=== PATIENT | female | born 1995 | race African-American/Black ===

== ENCOUNTER 2020-06-14 12:07 | Emergency (ER) | payer OTHER ==
[~2020-06-14] VITALS: Ht 162.6 cm; Wt 97.1 kg
[2020-06-14 12:08] VITALS: BP 123/78
--- OUTSIDE RECORDS SUMMARY | 2020-06-14 13:03 | CCD ---
Author Author [facility] [place] [facility] Address Unknown Phone Unavailable Support Name Relationship Address Phone UE Next Of Kin Unknown Unavailable Re-disclosure Warning The records that you are about to access may contain information from federally-assisted alcohol or drug abuse programs. If such information is present, then the following federally mandated warning applies: This information has been disclosed to you from records protected by federal confidentiality rules (42 CFR part 2). The federal rules prohibit you from making any further disclosure of this information unless further disclosure is expressly permitted by the written consent of the person to whom it pertains or as otherwise permitted by 42 CFR part 2. A general authorization for the release of medical or other information is NOT sufficient for this purpose. The Federal rules restrict any use of the information to criminally investigate or prosecute any alcohol or drug abuse patient.The records that you are about to access may contain highly sensitive health information, the redisclosure of which is protected by Article 27-F of the [facility] Public Health law. If you continue you may have access to information: Regarding HIV / AIDS; Provided by facilities licensed or operated by the [facility] Office of Mental Health; or Provided by the [facility] Office for People With Developmental Disabilities. If such information is present, then the following [facility] mandated warning applies: This information has been disclosed to you from confidential records which are protected by state law. State law prohibits you from making any further disclosure of this information without the specific written consent of the person to whom it pertains, or as otherwise permitted by law. Any unauthorized further disclosure in violation of state law may result in a fine or care home sentence or both. A general authorization for the release of medical or other information is NOT sufficient authorization for further disc losure. Insurance Providers Payer name Policy type / Coverage type Policy ID Covered green party ID Covered green party's relationship to lyon Policy [place] Plan Information [facility] [id number] [facility] [id number]
== END 2020-06-14 13:15 | disposition home or self-care (01) ==
LOC: M ED 12:07
DX: N92.1 Excessive and frequent menstruation with irregular cycle (principal); N94.6 Dysmenorrhea, unspecified; Z88.0 Allergy status to penicillin

== ENCOUNTER 2020-08-13 19:11 | Emergency (ER) | payer OTHER, SELFPAY ==
[~2020-08-13] VITALS: Ht 162.6 cm; Wt 94.9 kg
[2020-08-13] MEDS ORDERED: ACETAMINOPHEN 500 MG TAB PO ONE (19:40)
[2020-08-13] MEDS ORDERED: NS 1,000 ML IV ONE (20:00)
[2020-08-13 20:20] LABS: BASO % 0.4 % (0.0-1.0); EOS % 0.2 % (0.0-3.0); HEMATOCRIT 39.3 % (36.0-47.0); HEMOGLOBIN 13.1 g/dl (12.0-15.5); LYMPH # 2.5 10^3/uL (1.5-5.0); LYMPH % 24.9 % (24.0-44.0); MEAN CORPUSCULAR HEMOGLOBIN 24.7 pg (27.0-33.0); MEAN CORPUSCULAR HGB CONC 33.3 g/dl (32.0-36.5); MONO # 0.8 10^3/uL (0.0-0.8); MONO % 8.1 % (2.0-8.0); NEUTROPHILS # 6.7 10^3/uL (1.5-8.5); NEUTROPHILS % 66.2 % (36.0-66.0); PLATELET COUNT, AUTOMATED 411 10^3/uL (150-450); RED BLOOD COUNT 5.31 10^6/uL (4.00-5.40); WHITE BLOOD COUNT 10.1 10^3/uL (4.0-10.0)
[2020-08-13 20:46] LABS: ALBUMIN 4.3 GM/DL (3.2-5.2); ALT/SGPT 16 U/L (12-78); BILIRUBIN,DIRECT < 0.1 MG/DL (0.0-0.2); BILIRUBIN,TOTAL 0.3 MG/DL (0.2-1.0); HCG, SERUM QUANTITATIVE < 1.0 MIU/ML; LIPASE 60 U/L (73-393); TOTAL PROTEIN 8.4 GM/DL (6.4-8.2)
[2020-08-13] MEDS ORDERED: KETOROLAC 30 MG/ML 1ML VIAL IV ONE (21:05)
[2020-08-13 23:36] LABS: APPEARANCE, URINE CLOUDY (CLEAR); BACTERIA, URINE AUTO NEGATIVE (NEGATIVE); BILIRUBIN, URINE AUTO NEGATIVE (NEGATIVE); BLOOD, URINE BLOOD NEGATIVE (NEGATIVE); COLOR, URINE AMBER (YELLOW); GLUCOSE, URINE (UA) AUTO NEGATIVE (NEGATIVE); KETONE, URINE AUTO 1+ mg/dL (NEGATIVE); LEUKOCYTE ESTERASE, URINE AUTO TRACE (NEGATIVE); MUCUS, URINE LARGE (NEGATIVE); NITRITE, URINE AUTO NEGATIVE (NEGATIVE); PROTEIN, URINE AUTO 2+ mg/dL (NEGATIVE); RBC, URINE AUTO 1 /HPF (0-3); SPECIFIC GRAVITY URINE AUTO 1.031 (1.002-1.035); SQUAMOUS EPITHELIAL CELL UR AU 24 /HPF (0-6); WBC, URINE AUTO 4 /HPF (0-3)
[2020-08-13] MEDS ORDERED: IBUP-1022 PO (23:48)
[2020-08-13 23:59] VITALS: BP 125/83
== END 2020-08-14 00:05 | disposition home or self-care (01) ==
LOC: M ED 19:11
DX: N93.9 Abnormal uterine and vaginal bleeding, unspecified (principal); R10.30 Lower abdominal pain, unspecified; Z88.0 Allergy status to penicillin
CPT/HCPCS: 80047; 80076; 81001; 83690; 84702; 85025; 86901; 87086; 96361; 96374; 99284; J1885

== ENCOUNTER 2020-08-28 17:16 | Emergency (ER) | payer OTHER ==
[~2020-08-28] VITALS: Ht 162.6 cm; Wt 99.4 kg
[~2020-08-28 17:16] MED LIST: IBUP-1022 PO
[2020-08-28 18:49] VITALS: BP 142/81
== END 2020-08-28 18:59 | disposition home or self-care (01) ==
LOC: M ED 17:16
DX: N92.6 Irregular menstruation, unspecified (principal); R10.2 Pelvic and perineal pain; R30.0 Dysuria; R11.0 Nausea; F41.9 Anxiety disorder, unspecified; F33.9 Major depressive disorder, recurrent, unspecified; Z88.0 Allergy status to penicillin

== ENCOUNTER → 2021-02-14 | Outpatient (REF) | payer OTHER | LOC: M WUC 20:28 | PROVIDERS: ATTEND Physician Assistant | DX: J06.9 Acute upper respiratory infection, unspecified (principal) ==

== ENCOUNTER 2021-03-13 23:00 | Inpatient (IN) | payer OTHER ==
[~2021-03-13] VITALS: Ht 160 cm; Wt 88.0 kg
[2021-03-14 00:52] LABS: HEMATOCRIT 39.2 % (36.0-47.0); HEMOGLOBIN 12.8 g/dl (12.0-15.5); MEAN CORPUSCULAR HGB CONC 32.7 g/dl (32.0-36.5); MEAN CORPUSCULAR VOLUME 67.5 fl (80.0-96.0); PLATELET COUNT, AUTOMATED 406 10^3/uL (150-450); RED BLOOD COUNT 5.81 10^6/uL (4.00-5.40); WHITE BLOOD COUNT 7.7 10^3/uL (4.0-10.0)
[2021-03-14 00:55] LABS: HCG, SERUM QUALITATIVE NEGATIVE (NEGATIVE)
[2021-03-14 01:08] LABS: AMPHETAMINES LEVEL URINE NEGATIVE (NEGATIVE); BARBITURATES URINE NEGATIVE (NEGATIVE); BENZODIAZEPINES URINE NEGATIVE (NEGATIVE); CANNABINOIDS URINE NEGATIVE (NEGATIVE); COCAINE METABOLITE URINE NEGATIVE (NEGATIVE); METHADONE URINE NEGATIVE (NEGATIVE); OPIATES URINE NEGATIVE (NEGATIVE); PHENCYCLIDINE URINE NEGATIVE (NEGATIVE)
[2021-03-14 01:37] LABS: ACETAMINOPHEN LEVEL < 2.0 UG/ML (10.0-30.0); ALBUMIN 4.2 GM/DL (3.2-5.2); ALT/SGPT 16 U/L (12-78); BILIRUBIN,DIRECT < 0.1 MG/DL (0.0-0.2); BILIRUBIN,TOTAL 0.4 MG/DL (0.2-1.0); BLOOD UREA NITROGEN 8 MG/DL (7-18); CALCIUM LEVEL 9.3 MG/DL (8.5-10.1); CARBON DIOXIDE LEVEL 20 MEQ/L (21-32); CHLORIDE LEVEL 106 MEQ/L (98-107); CREATININE FOR GFR 0.93 MG/DL (0.55-1.30); ETHYL ALCOHOL (ETHANOL) < 0.003 % (0.000-0.010); GLOMERULAR FILTRATION RATE > 60.0 (>60); GLUCOSE, FASTING 130 MG/DL (70-100); POTASSIUM SERUM 3.8 MEQ/L (3.5-5.1); SALICYLATE LEVEL < 1.7 MG/DL (5.0-30.0); SODIUM LEVEL 139 MEQ/L (136-145); TOTAL PROTEIN 8.6 GM/DL (6.4-8.2)
[2021-03-14] MEDS ORDERED: OLANZapine ORAL DISINTEGRATING TAB 5MG PO ONE (08:55)
--- NOTE | 2021-03-14 21:41 | ECGEPIP ---
[facility] - ED Test Date: 2021-03-14 Pat Name: ANDREA COPPOLA Department: Room: - Gender: Female Airplane Fueler: MATIAS : 1995 Requested By: AMANDA Dye Order Number: [id number] Reading MD: Waqar Segura Measurements Intervals [place] Rate: 109 P: NV: 96 QRS: 60 QRSD: 90 T: 57 QT: 484 QTc: 651 Interpretive Statements Sinus tachycardia with short NV T wave abnormality, consider inferior ischemia Prolonged QTc interval Comparison tracing not on file Electronically Signed on 03-14-2021 21:40:48 EDT by Waqar Segura
[2021-03-15] MEDS ORDERED: OLANZapine ORAL DISINTEGRATING TAB 5MG PO PRN (09:40)
[2021-03-15] MEDS ORDERED: MAALOX 30 ML SUSP *UDC PO PRN (09:40)
[2021-03-15] MEDS ORDERED: traZODone 50 MG TAB PO PRN (09:40)
[2021-03-15] MEDS ORDERED: MOM 30ML SUSPENSION UDC PO PRN (09:40)
[2021-03-15] MEDS ORDERED: ACETAMINOPHEN TAB 650MG DOSE (2X325MG) PO PRN (09:40)
[2021-03-15 09:47] LABS: RSV AMPLIFICATION NEGATIVE (NEGATIVE)
[2021-03-15] MEDS ORDERED: ZOLO100T PO (09:52)
[2021-03-15] MEDS ORDERED: HOME MED LIST COMPLETE! XX SCH (09:55)
[2021-03-15 16:19] VITALS: BP 133/90
[2021-03-15] MEDS: SERTRALINE 100 MG TAB PO SCH (21:23)
[2021-03-16 07:41] VITALS: BP 114/64
--- NOTE | 2021-03-16 10:05 | MHHPEPDOC ---
General Date Of Admission: Mar 15, 2021 Legal Status: 9.39 Chief Complaint "thought somebody coming to kill me" History of Present Illness HISTORY OF THE PRESENT ILLNESS: Patient is a 25 -year-old , female, dependent who has a reported hx of bipolar disorder, depression. [place] thought someone was flash a cell phone light outside apartment and may be a murder for hire. "I don't have any cameras set up yet and you never know". Denies AH, VH, but reports having auditory hallucinations of someone calling her name in the shower when in [place], reports he voice was unrecognizable and asked her questions, stated "we are watching you, when in went into a full scenario". States she didn't grow up in a dangerous neighborhood, was never around drug dealers, but states her friend Esperanza told her she knew drug dealers a couple months ago and this started to make her afraid. Does not appear manic, reports mood is "fairly okay because I can get cameras", reports sleeping well, energy is okay, "still a little fatigued". Had received a dose of Olanzapine in the ED, which has mildly helped with anxiety and paranoia. Per collateral from [place]: "I was in the field when she came in so didn't know what was happening. She has not heard voices lately, take olanzapine and doctor was thinking of starting on abilify, because olanzapine cause female problems and weight gain. She has no history of suicide attempts. Told me before diagnosed with depression was hearing voices talking to her back in [place], but not since." Psychiatric Review of Systems Depression (2 or more weeks): decreased energy Mehreen (4 or more days of): denies (denies ever having manic episodes, does report hx of depression) Psychosis: delusions, paranoia Past Psychiatric History Previous Psychiatric Diagnosis: Bipolar disorder Previous Psychiatric Admissions: Last admitted in [place] in 2018, I was depressed for a month, starting having AH/VH Suicide Attempts: denies Psychiatric Follow-up: Dr Jamaal Chacon, connected with [facility] Psychiatric medications: sertraline 100 mg, started 2 weeks ago, was planned to start abilify. Has tried olanzapine in the past made her sleep all day Past Medical History Medical Problems PCOS, irregular menses Head Injury: No Seizures: No Hospitalizations: No Surgeries: No Family Medical/Psychiatric HX Medical Problems denies Psychiatric Disorders: Yes (mother MDD) Addiction: No Suicide Attemps/Completions: No Addiction History denies Social History Childhood: Grew up in [facility] [place], has 3 kids, [place] Abuse/Trauma:denies Current Living [place]. 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 Marital: . Mental Status Examination General Appearance: unkempt Build: overweight Demeanor: preoccupied Eye Contact: average Activity: average Behavior: cooperative Speech: clear Mood: euthymic Affect: constricted Thought Process: logical/linear Thought Content (Delusions): paranoia Thought Content (Other): phobic, coherent Thought Content (Aggressive): none reported Perception (Hallucinations): none reported Perception (Other): none reported Cognition (Impairment of): attention/concentration Cognition(Intelligence Est.): average Oriented: Awake, Alert, Oriented times three Insight: fair Judgment: Fair Psychosis: Psychotic Perceptions Diagnoses Bipolar disorder with psychotic features vs Schizoaffective disorder vs Major depressive disorder with psychotic features A-FIB/CHADSVASC A-FIB History Current/History of A-Fib/PAF?: No Current PO Anticoag Therapy: No Age/Risk Factor Scoring CHADSVASC: CHADSVASC Response (Comments) Value Age Risk Factor Age < 65 years old 0 Gender Risk Factor Female 1 Hx of CHF No 0 Hx of HTN No 0 Hx of Stroke/TIA/or VTE No 0 Hx of Diabetes No 0 Hx of Vascular Disease No 0 Total 1 Treatment Treatment ordered: NONE Reason Anticoagulant not given: Not indicated/[id number], Other Other reason anticoagulant not: defer to hospitalist team Assessment Patient is a 25 -year-old , female, dependent who has a reported hx of bipolar disorder, depression. [place], thought someone was flash a cell phone light outside apartment and may be a murder for hire. "I don't have any cameras set up yet and you never know". Denies AH, , but reports having auditory hallucinations of someone calling her name in the shower when in [place], reports he voice was unrecognizable and asked her questions, stated "we are watching you, when in went into a full scenario". States she didn't grow up in a dangerous neighborhood, was never around drug dealers, but states her friend Esperanza told her she knew drug dealers a couple months ago and this started to make her afraid. Does not appear manic, reports mood is "fairly okay because I can get cameras", reports sleeping well, energy is okay, "still a little fatigued". Had received a dose of Olanzapine in the ED, which has mildly helped with anxiety and paranoia. Initial Treatment Plan 1. Patient was admitted on a [9.39] status. 2. Complete history was obtained. 3. With patients permission, family will be contacted and database will be expanded. 4. Patients medication regimen will be reviewed and changed accordingly. 5. Patient will be provided with protected environment. 6. Patient will be treated with individual, group, and milieu therapies. 7. Patient will receive supportive psych-education. 8. Discharge planning will commence immediately. 9. Outpatient follow-up treatment will be strongly recommended. 10. The initial treatment plan will focus initially on: * Depression. * Risk for suicide. ESTIMATED LENGTH OF STAY: 1-5 DAYS. TIME SPENT COUNSELING AND COORDINATING INITIAL CARE: 40 minutes. Tobacco Cessation Screen If Patient is a Smoker no Ordered/Pending Vital Signs Vital Signs Date Time Temp Pulse Resp B/P (MAP) Pulse Ox O2 Delivery O2 Flow Rate FiO2 03/16/21 07:41 97.7 72 18 114/64 (81) 99 Room Air Medications Scheduled Sertraline Hcl (Zoloft) 100 Mg Tablet, 100 MG PO QHS, (Reported) Allergies Coded Allergies: Penicillins (Verified Allergy, Severe, 06/14/20) DAVE DUNCAN MD Mar 16, 2021 10:05
--- NOTE | 2021-03-16 15:29 | HPEPDOC ---
[facility] Medical History & Physical Date of Admission Mar 16, 2021 Date of Service: Mar 16, 2021 Other Provider Ravi Mccormick MD psychiatry Attending Physician: YANI TOVAR DO History and Physical CHIEF COMPLAINT: I thought someone was trying to kill me HISTORY OF PRESENT ILLNESS: Patient is a 25-year-old female with a history of reported bipolar disorder and depression who presented to the emergency department with auditory hallucinations stating that someone was trying to murder her. Patient states that she did not have any camera set up and she never knows if someone is trying to get her. Patient states she thought she saw people looking at the window and presented to the emergency department. Patient does not have any medical complaints at this time and is feeling otherwise well. PAST MEDICAL HISTORY: 1. PCOS. 2. History of bipolar. PAST SURGICAL HISTORY: Denies any surgeries SOCIAL HISTORY: Patient denies smoking cigarettes, drinking alcohol, or illicit drug use. Patient is a dependent FAMILY HISTORY: Patient denies any medical problems that run in her family. Patient's mother does have depression ALLERGIES: Please see below. REVIEW OF SYSTEMS: General: Patient denies fevers HEENT: Patient denies headaches Cardiovascular: Patient denies chest pain Respiratory: Patient denies shortness of breath, cough GI: Patient denies abdominal pain, nausea, vomiting, diarrhea : Patient denies increased frequency or pain with urination Extremities: Patient denies swelling or pain in extremities Neurological: Patient denies numbness or tingling in legs Skin: Patient denies any new rashes or lesions. Hematologic: Patient denies any easy bruising. Lymphatic: Patient denies any lumps lumps or bumps in neck, axilla, or groin HOME MEDICATIONS: Please see below. PHYSICAL EXAMINATION: VITAL SIGNS: Temperature 97.7, pulse 72, respiratory rate 18, blood pressure 114/64, pulse oximetry 99% on room air. General: Alert and oriented female patient who was walking around the unit when I walked down. Patient was able to walk into the examination room without any difficulty. Patient did not appear to be in any acute distress. HEENT: Normocephalic, atraumatic, moist mucous membranes. Neck: No lymphadenopathy or thyromegaly Cardiac: Regular rate and rhythm, no murmurs, normal S1, normal S2 Pulm: Clear to auscultation bilaterally. No wheezes, rhonchi, rales Abd: Nondistended, nontender to palpation, normal bowel sounds Ext: No edema bilateral lower extremities Neuro: Patient was able to move all 4 extremities on command and reported equal sensation light touch in all 4 extremities. Skin: Skin of the head, neck, upper and lower extremities was examined did not show any evidence of rash or wounds. LABORATORY DATA: See below. IMAGING: No imaging has been performed MICROBIOLOGY: Please see below. ASSESSMENT: 25-year-old female who presented to the inpatient mental health unit for hearing voices and thinking someone was trying to kill her.. . PLAN: 1. Bipolar disorder. Continue treatment per psychiatry. Disposition: Patient can be discharged per psychiatry. Reconsult hospitalist if the need arises. Thank you for the consult Vital Signs Vital Signs Date Time Temp Pulse Resp B/P (MAP) Pulse Ox O2 Delivery O2 Flow Rate FiO2 03/16/21 10:15 Room Air 03/16/21 07:41 97.7 72 18 114/64 (81) 99 Home Medications Scheduled Sertraline Hcl (Zoloft) 100 Mg Tablet, 100 MG PO QHS Allergies Coded Allergies: Penicillins (Verified Allergy, Severe, 06/14/20) A-FIB/CHADSVASC A-FIB History Current/History of A-Fib/PAF?: No Age/Risk Factor Scoring CHADSVASC: CHADSVASC Response (Comments) Value Age Risk Factor Age < 65 years old 0 Gender Risk Factor Female 1 Hx of CHF No 0 Hx of HTN No 0 Hx of Stroke/TIA/or VTE No 0 Hx of Diabetes No 0 Hx of Vascular Disease No 0 Total 1 YANI TOVAR DO Mar 16, 2021 15:29
[2021-03-16 18:00] VITALS: BP 130/83
--- NOTE | 2021-03-16 19:20 | ECGEPIP ---
[facility] Test Date: 2021-03-16 Pat Name: ANDREA COPPOLA Department: Room: [place] [address] Gender: Female Fitness Attendant: PRASANTH : 1995 Requested By: DAVE Cee Order Number: [id number] Reading MD: Waqar Segura Measurements Intervals [place] Rate: 90 P: 69 WI: 148 QRS: 61 QRSD: 100 T: 57 QT: 368 QTc: 450 Interpretive Statements Normal sinus rhythm Nonspecific T wave abnormality QTc normalized from tracing done 03-14-21 Electronically Signed on 03-16-2021 19:20:46 EDT by Waqar Segura
[2021-03-16] MEDS: SERTRALINE 100 MG TAB PO SCH (20:44)
[2021-03-16] MEDS ORDERED: ARIPiprazole 2 MG TAB PO SCH (21:00)
[2021-03-17 07:19] VITALS: BP 121/93
[2021-03-17] MEDS ORDERED: ABIL1TAB11 PO (08:44)
[2021-03-17] MEDS ORDERED: ZOLO100T PO (08:44)
[2021-03-17 10:26] LABS: CHOLESTEROL RISK RATIO 6.187 (<5)
--- NOTE | 2021-03-17 14:07 | MHDSPDOC ---
[facility] Discharge Summary Discharge Summary DATE OF ADMISSION: Mar 15, 2021 at 09:39 DATE OF DISCHARGE: Mar 17, 2021 at 12:25 Discharge diagnoses: Major depressive disorder, recurrent, with psychotic features Reason for admission: Patient is a 25 -year-old , female, dependent who has a reported hx of bipolar disorder, depression. [place], thought someone was flash a cell phone light outside apartment and may be a murder for hire. "I don't have any cameras set up yet and you never know". Denies AH, , but reports having auditory hallucinations of someone calling her name in the shower when in [place], reports he voice was unrecognizable and asked her questions, stated "we are watching you, when in went into a full scenario". States she didn't grow up in a dangerous neighborhood, was never around drug dealers, but states her friend Esperanza told her she knew drug dealers a couple months ago and this started to make her afraid. Does not appear manic, reports mood is "fairly okay because I can get cameras", reports sleeping well, energy is okay, "still a little fatigued". Had received a dose of Olanzapine in the ED, which has mildly helped with anxiety and paranoia. Vital signs: See below Consultants involved: See medical H&P by hospitalist Treatment and progress on the unit: Patient was admitted to the [facility] on a 9.39 legal status and was afforded the following treatment modalities: 1. Individual therapy 2. Group therapy 3. Medication management 4. Milieu therapy 5. Safe environment Hospital course: Patient was admitted to the [facility] on a 9.39 legal status. Was medically cleared prior to coming up to the [facility]. Patient reported increased paranoia, thought some was flashing light outside her place, was feeling anxious in context of stopping her olanzapine with plan to switch to Abilify due to side effects. Patient was continued on sertraline 100 mg p.o. daily and did not exhibit any manic behavior or hypomanic behavior, but did endorse the paranoia and agreed to starting Abilify 5 mg nightly for mood augmentation and psychotic symptoms in the context of depressed mood. Patient denied any side effects and found medications beneficial and tolerated them well. She was pleasant and calm and cooperative during her stay, was agreeable to returning home and continuing with outpatient provider. Denied mood, anxiety and intrusive thoughts which improved with treatment. Patient attended groups daily during stay. Patient symptoms improved with treatment. On day of discharge patient denied depression, anxiety, insomnia, suicidal or homicidal ideations intent or plan, hallucinations, delusions. Patient was discharged home with follow-up. Patient felt safe for discharge. Was offered continued stay on a voluntary admission but refused. Discharge assessment: On today's interview patient is alert and oriented, dressed appropriately. Hygiene and grooming is well-kept. Smiles on approach and is pleasant and engaged on interview. Denies depression and anxiety. Denies suicidal homicidal ideation, intent or planning. Denies and is not observed with hamlet or psychotic symptoms of delusions, hallucinations, bizarre thinking, obsessions, paranoia, ruminations, illogical thoughts, flight of ideas or having poor insight or judgment. Patient has normal mentation, declines further hospitalization of voluntary status and meets criteria for discharge today, patient encouraged to return the hospital if symptoms worsen or change a nd encouraged to call unit if they feel they need provider's questions to be answered or help with medications or care. Mental status: General Appearance: unkempt Build: overweight Demeanor: Calm, cooperative, pleasant Eye Contact: average Activity: average Behavior: cooperative Speech: clear Mood: euthymic Affect: Full, does smile and laugh, appropriate, mood congruent Thought Process: logical/linear Thought Content (Delusions): paranoia Thought Content (Other): phobic, coherent Thought Content (Aggressive): none reported Perception (Hallucinations): none reported Perception (Other): none reported Cognition (Impairment of): attention/concentration Cognition(Intelligence Est.): average Oriented: Awake, Alert, Oriented times three Insight: Improved Judgment: Good Psychosis: Denies psychotic perception Medications on discharge: see medication reconciliation: CSSRS on discharge: Wish to be : No nonspecific active suicidal thoughts: No lifetime attempts: 0 interrupted attempts: 0 aborted attempts: 0 preparatory acts or behavior: None Taking into consideration safety state, status, modifiable, non-modifiable risk factors patient is at low risk on discharge for suicide according to [place] suicide evaluation. Follow-up appointments: Follow Up Care Education Label * Mental Health Appt 1 * Mental Health [facility] * Established With This Provider Yes * Therapist DR. SANFORD * Date Mar 17, 2021 * Time 11:00 * Address of Clinic or Practice [facility] * Follow Up Care Education Label * Medical * Medical Follow Up [facility] * Established With This Provider Yes * Therapist DR. GARDUNO * Date Mar 22, 2021 * Time 09:20 * Address of Clinic or Practice [facility] * The amount of time spent in the coordination of care for this patient was approximately 25 minutes. ETOH/Disorder Med Rx ETOH/DRUG DISORDER RX: N/A Vital Signs/I&Os Vital Signs Date Time Temp Pulse Resp B/P (MAP) Pulse Ox O2 Delivery O2 Flow Rate FiO2 03/17/21 07:19 96.9 106 16 121/93 (102) 97 Room Air Laboratory Data Labs 24H Laboratory Tests 2 03/17/21 09:29: Triglycerides Level 107, Total Cholesterol 198, LDL Cholesterol 145H, Non-HDL Cholesterol (LDL + VLDL) 166, Total HDL Cholesterol 32L, Cholesterol/HDL Ratio 6.187H Medications Scheduled Aripiprazole (Abilify) 5 Mg Tablet, 5 MG PO QHS for mood, #7 Sertraline Hcl (Zoloft) 100 Mg Tablet, 100 MG PO QHS for mood, #7 Allergies Coded Allergies: Penicillins (Verified Allergy, Severe, 06/14/20) DAVE DUNCAN MD Mar 17, 2021 14:07
== END 2021-03-17 12:25 | disposition home or self-care (01) | DRG 885 ==
LOC: M ED 23:00 → M ED INP 03-15 09:39 → M PSY 03-15 11:48
PROVIDERS: ADMIT Student in an Organized Health Care Education/Training Program; ATTEND Student in an Organized Health Care Education/Training Program
DX: F33.2 Major depressive disorder, recurrent severe without psychotic features (principal); Z88.0 Allergy status to penicillin

== ENCOUNTER 2021-09-04 11:20 | Emergency (ER) | payer OTHER ==
[~2021-09-04] VITALS: Ht 162.6 cm; Wt 86.4 kg
[2021-09-04 11:20] VITALS: BP 114/62
[~2021-09-04 11:20] MED LIST changes: +ABIL1TAB11 PO; +ZOLO100T PO
== END 2021-09-04 17:09 | disposition left against medical advice (07) ==
LOC: M ED 11:20
DX: Z53.21 Procedure and treatment not carried out due to patient leaving prior to being seen by health care provider (principal)